=== PATIENT | male | born 1995 | race African-American/Black ===

== ENCOUNTER 2020-08-12 20:41 | Emergency (ER) | payer OTHER ==
[~2020-08-12] VITALS: Ht 172.7 cm; Wt 84.0 kg
[~2020-08-12 20:41] MED LIST: ALBUTEROL
[2020-08-12 20:51] VITALS: BP 124/51
[2020-08-12] MEDS ORDERED: ONDANSETRON HCL 4MG/2ML INJ IV STA (20:56)
[2020-08-12] MEDS ORDERED: SODIUM CHLORIDE 0.9% 1,000 ML IV ONE (21:00)
== END 2020-08-12 21:01 ==
LOC: ER 20:41
DX: R11.2 Nausea with vomiting, unspecified (principal); Z53.21 Procedure and treatment not carried out due to patient leaving prior to being seen by health care provider
CPT/HCPCS: J7030